=== PATIENT | female | born 1970 | race Two or more races ===

== ENCOUNTER 2025-01-27 17:18 | Outpatient (CLI) | payer OTHER, SELFPAY | END 2025-01-27 17:19 | disposition home or self-care (01) | LOC: NFLDREF 01-31 01:06 | PROVIDERS: Visit Provider Family Medicine | DX: R10.9 Unspecified abdominal pain (principal); R05.9 Cough, unspecified; N39.0 Urinary tract infection, site not specified | CPT/HCPCS: 87086; 87186 ==